=== PATIENT | male | born 1950 | race Caucasian/White ===

== ENCOUNTER 2020-07-09 07:55 | Emergency (ER) | payer BC, MEDICARE ==
[~2020-07-09] VITALS: Ht 185.4 cm; Wt 95.5 kg
[2020-07-09] MEDS ORDERED: LIPI20TA PO (08:04)
[2020-07-09] MEDS ORDERED: ATEN25TA PO (08:04)
--- NOTE | 2020-07-09 09:08 | REPVR ---
PROCEDURE INFORMATION: Exam: US Duplex Left Lower Extremity Veins, Limited Exam date and time: 07/09/2020 9:03 AM Age: 69 years old Clinical indication: Pain; Leg, lower; Left; Additional info: Pain and swelling to lll R/O dvt TECHNIQUE: Imaging protocol: Real-time Duplex ultrasound of the Left Lower Extremity with 2-D michelle scale, color Doppler flow and spectral waveform analysis with image documentation. Limited exam focused on the left lower extremity veins. COMPARISON: No relevant prior studies available. FINDINGS: Left deep veins: Unremarkable. The common femoral, femoral, proximal profunda femoral and popliteal veins are patent without thrombus. Normal Doppler waveforms. Normal compressibility and/or augmentation response. Left superficial veins: Unremarkable. Saphenofemoral junction is patent without thrombus. Soft tissues: Unremarkable. IMPRESSION: No evidence of deep vein thrombosis. Electronically signed by: Ezio Ga On 07/09/2020 09:07:53 AM
[2020-07-09 09:14] LABS: BASO # 0.1 10^3/uL (0.0-0.2); BASO % 0.5 % (0.0-1.0); EOS # 0.1 10^3/uL (0.0-0.5); EOS % 0.8 % (0.0-3.0); HEMATOCRIT 46.4 % (42.0-52.0); HEMOGLOBIN 15.8 g/dl (13.5-17.5); LYMPH # 1.3 10^3/uL (1.5-5.0); LYMPH % 12.8 % (24.0-44.0); MEAN CORPUSCULAR HEMOGLOBIN 33.3 pg (27.0-33.0); MEAN CORPUSCULAR HGB CONC 34.1 g/dl (32.0-36.5); MEAN CORPUSCULAR VOLUME 97.7 fl (80.0-96.0); MONO % 9.9 % (0.0-5.0); NEUTROPHILS # 7.7 10^3/uL (1.5-8.5); NEUTROPHILS % 75.6 % (36.0-66.0); PLATELET COUNT, AUTOMATED 231 10^3/uL (150-450); RED BLOOD COUNT 4.75 10^6/uL (4.30-6.10); WHITE BLOOD COUNT 10.2 10^3/uL (4.0-10.0)
[2020-07-09 09:33] LABS: BLOOD UREA NITROGEN 14 MG/DL (7-18); CALCIUM LEVEL 9.5 MG/DL (8.8-10.2); CARBON DIOXIDE LEVEL 28 MEQ/L (21-32); CHLORIDE LEVEL 106 MEQ/L (98-107); CREATININE FOR GFR 1.17 MG/DL (0.70-1.30); GLOMERULAR FILTRATION RATE > 60.0 (>49); GLUCOSE, FASTING 116 MG/DL (70-100); POTASSIUM SERUM 5.6 MEQ/L (3.5-5.1); SODIUM LEVEL 140 MEQ/L (136-145)
[2020-07-09 09:36] LABS: INR 0.87
[2020-07-09 09:37] LABS: ERYTHROCYTE SEDIMENTATION RATE 2 mm/hr (0-20); PARTIAL THROMBOPLASTIN TIME 26.1 SECONDS (25.0-38.4)
--- NOTE | 2020-07-09 09:57 | REPVR ---
PROCEDURE INFORMATION: Exam: XR Left Foot Complete Exam date and time: 07/09/2020 9:26 AM Age: 69 years old Clinical indication: Pain; Foot; Left; Additional info: Pain and swelling no known injury TECHNIQUE: Imaging protocol: XR Left foot. Views: 3 or more views. COMPARISON: No relevant prior studies available. FINDINGS: Bones/joints: Bone mineralization is normal. There is joint space preservation with no erosive or significant hypertrophic change. No acute fracture or dislocation. Mild spurring off the plantar aspect of the calcaneus. Soft tissues: There is mild soft tissue prominence along the medial aspect of the 1st MTP joint with few faint periarticular calcifications, possibly early gout. IMPRESSION: Mild soft tissue prominence with few faint periarticular calcifications adjacent to the 1st MTP joint which may represent early changes of gout. No significant associated arthritic change. Mild calcaneal spurring. No acute bony abnormality is identified. Electronically signed by: Ezio Ga On 07/09/2020 09:56:38 AM
[2020-07-09] MEDS ORDERED: PRED20TA PO (10:08)
[2020-07-09] MEDS ORDERED: INDO50CA91 PO (10:08)
[2020-07-09 10:27] LABS: URIC ACID 6.5 MG/DL (3.5-7.2)
[2020-07-09 10:56] VITALS: BP 152/71
== END 2020-07-09 10:59 | disposition home or self-care (01) ==
LOC: M ED 07:55
DX: M10.9 Gout, unspecified (principal); I10 Essential (primary) hypertension; E78.5 Hyperlipidemia, unspecified; Z79.899 Other long term (current) drug therapy